=== PATIENT | female | born 1935 | race Caucasian/White ===

== ENCOUNTER → 2017-04-30 | Outpatient (CLI) | payer MEDICARE, BC ==
[~2017-04-30] MED LIST: 3N1 COMMODE MC; ASPI-535 PO; DESO1TAB PO; OXYC-481 PO; PARO12.517 PO; TOPI25CA PO; TRAM50TA2 PO
--- NOTE | 2017-04-30 22:47 | RADRPT ---
PROCEDURE: XR Hip. CLINICAL INDICATION: Bilateral hip pain TECHNIQUE: AP view of the pelvis, AP and frog lateral views of both the right and left hip were pe rformed, a total of 5 images sent to the PACS for review. COMPARISON: 04/03/2016 FINDINGS: Diffuse demineralization is again noted likely reflective of osteopenia . No fracture or osseous les ion is identified. Right hip arthroplasty changes are satisfactory appearance without dislocation or periprosthetic lucency. Osteoarthrosis of the left hip joint is moderate and stable, osteophyte ar ising from the superior lateral femoral head is again seen. The soft tissues are unremarkable. RPTAT:HJJR IMPRESSION: 1. Right hip arthroplasty changes satisfactory in radiographic appearance and stable compared to . 2. Moderate left hip joint osteoarthrosis with lateral femoral head spurring unchanged from the shawn or exam. 3. Generalized demineralization consistent with osteopenia unable to exclude osteoporosis. Physician Sarah Date Time Electronically viewed and signed by Physician Sarah on 04/30/2017 22:46 /
== END | disposition home or self-care (01) ==
LOC: HKI 14:01
PROVIDERS: ATTEND Orthopaedic Surgery
DX: M16.12 Unilateral primary osteoarthritis, left hip (principal); M51.36 Other intervertebral disc degeneration, lumbar region; M54.16 Radiculopathy, lumbar region; Z96.641 Presence of right artificial hip joint
CPT/HCPCS: 73523; G0463